=== PATIENT | female | born 1975 | race Caucasian/White ===

== ENCOUNTER → 2016-12-07 | Outpatient (CLI) | payer BC | LOC: FIMAGING 08:40 | DX: Z12.31 Encounter for screening mammogram for malignant neoplasm of breast (principal) | CPT/HCPCS: G0202 ==

== ENCOUNTER 2018-06-12 06:40 | Day surgery (SDC) | payer BC ==
[2018-06-12] MEDS ORDERED: DOXYCYCLINE HYCLATE 100 MG CAP/TAB PO ONE ×2 (07:32→10:46)
--- NOTE | 2018-06-12 07:53 | PDHPUP ---
History & Physical Update H&P update statement: This history and physical update is based on an assessment of the patient which was completed after admission or registration (within 24 hours), but prior to the surgery/procedure. H&P update: H&P reviewed & patient examined, no change in patient's condition since H&P completed
[2018-06-12] MEDS ORDERED: LR 1,000 ML IV SCH (08:00)
[2018-06-12] MEDS ORDERED: MIDAZOLAM 2 MG/2 ML VIAL ONE (09:52)
--- NOTE | 2018-06-12 09:56 | PDANEPAE ---
ANE History of Present Illness Missed Ab. ANE Past Medical History - Cardiovascular History Hx Hypertension: No Hx Arrhythmias: No Hx Chest Pain: No Hx Coronary Artery / Peripheral Vascular Disease: No Hx CHF / Valvular Disease: No Hx Palpitations: No - Pulmonary History Hx COPD: No Hx Asthma/Reactive Airway Disease: No Hx Recent Upper Respiratory Infection: No Hx Oxygen in Use at Home: No Hx Sleep Apnea: No - Chronic Pain History Chronic Pain: No - Surgical History Prior Surgeries: Prior general anesthesia x 2. ANE Review of Systems Review of systems is: negative Review of Systems: - Exercise capacity Exercise capacity: >=4 METS ANE Patient History - Allergies Allergies/Adverse Reactions: No Known Allergies Allergy (Unverified 06/12/18 07:32) - NPO status NPO Status: no food or drink >8 hours NPO Since - Liquids (Date): 06/11/18 NPO Since - Liquids (Time): 20:30 NPO Since - Solids (Date): 06/11/18 NPO Since - Solids (Time): 20:00 - Anes Hx Anes Hx: no prior problems - Smoking Hx Smoking Status: Never smoked - Alcohol Use Alcohol Use: Rarely - Family Anes Hx Family Anes Hx: neg - N/A ANE Labs/Vital Signs - Vital Signs Blood Pressure: 104/73 Heart Rate: 62 Respiratory Rate: 16 O2 Sat (%): 100 Height: 165.1 cm Weight: 63.503 kg ANE Physical Exam - Airway Neck exam: FROM Mallampati Score: Class 1 Mouth exam: normal dental/mouth exam - Pulmonary Pulmonary: no respiratory distress - Cardiovascular Cardiovascular: regular rate and rhythym - ASA Status ASA Status: I ANE Anesthesia Plan Anesthesia Plan: GA with mask
[2018-06-12] MEDS ORDERED: PROPOFOL/EMULSION 500 MG/50 ML BOTTLE IV ONE (10:06)
[2018-06-12] MEDS ORDERED: fentaNYL 100 MCG/2 ML INJ ONE (10:08)
[2018-06-12] MEDS ORDERED: DEXAMETHASONE 4 MG/ML VIAL ONE ×2 (10:34)
[2018-06-12] MEDS ORDERED: ONDANSETRON 4 MG/2 ML VIAL ONE ×2 (10:34)
[2018-06-12] MEDS ORDERED: KETOROLAC 30 MG/1 ML SDV ONE (10:34)
[2018-06-12] MEDS ORDERED: LIDOCAINE 2% 2 ML INJ ONE (10:34)
[2018-06-12] MEDS ORDERED: MISOPROSTOL 200 MCG TAB ONE (10:35)
--- NOTE | 2018-06-12 10:51 | POSTOPPROG ---
Post Op Note Date of Operation: 06/12/18 Surgeon: Kiana Hamilton Anesthesiologist: Dr Marquise Stacy Anesthesia: GET(General Endotracheal) Pre-op Diagnosis: MAB @ 7 weeks Post-op Diagnosis: same Procedure: suction D and C Inf/Abcess present in the surg proc area at time of surgery?: No Depth: Organ Space EBL: Minimal Total fluids administered: 1000 Complications: none Specimen(s): products of conception
--- NOTE | 2018-06-12 11:00 | POSTANESTH ---
Post Anesthetic Evaluation Cardiovascular Status: Normal, Stable, Similar to Pre-Op Cond Respiratory Status: Normal, Stable, Similar to Pre-op Cond. Level of Consciousness/Mental Status: Can Participate in Eval, Alert and Oriented Pain Control: Adequate, Prn Tx Ordered Nausea/Vomiting Control: Adequate, Prn Tx Ordered Complications Possibly Related to Anesthesia: None Noted
[2018-06-12] MEDS ORDERED: NALOXONE HCL 0.4 MG/ML INJ IVP PRN (11:01)
[2018-06-12] MEDS ORDERED: fentaNYL 100 MCG/2 ML INJ IVP PRN (11:01)
[2018-06-12] MEDS ORDERED: HYDROCODONE/APAP 5/325 TAB PO PRN (11:01)
[2018-06-12 11:49] VITALS: BP 114/75
== END 2018-06-12 12:20 | disposition home or self-care (01) ==
LOC: FOBOP 06:40
PROVIDERS: ATTEND Obstetrics & Gynecology
PROC: 10D17ZZ Extraction of Products of Conception, Retained, Via Natural or Artificial Opening (ICD-10-PCS; principal; 2018-06-12)
DX: O02.1 Missed abortion (principal)
CPT/HCPCS: J1100; J1885; J2250; J2405; J2704; J3010